=== PATIENT | female | born 1980 | race Caucasian/White ===

== ENCOUNTER 2018-12-17 02:32 | Emergency (ER) | payer OTHER ==
[~2018-12-17] VITALS: Ht 167.6 cm; Wt 72.6 kg
[~2018-12-17 02:32] MED LIST: MACROBID 100 M100 M1 PO; PRENATAL
[2018-12-17 03:06] LABS: ABSOLUTE BASOPHILS 0.1 thou/uL (0.0-0.2); ABSOLUTE EOSINOPHILS 0.1 thou/uL (0.0-0.7); ABSOLUTE LYMPHOCYTES 2.8 thou/uL (0.8-5.3); ABSOLUTE MONOCYTES 0.6 thou/uL (0.0-1.2); ABSOLUTE NEUTROPHILS 3.6 thou/uL (1.6-8.1); BASOPHILS 0.8 %; EOSINOPHILS 1.7 %; HEMOGLOBIN 13.7 gm/dL (12.0-15.0); LYMPHOCYTES 39.2 %; MCH 30.8 pg (26.0-34.0); MCHC 34.2 g/dL (28.0-37.0); MCV 90.1 fL (80.0-100.0); MONOCYTES 7.7 %; MPV 7.8 fl. (7.2-11.1); NUCLEATED RBCS 0 /100WBC; PLATELET COUNT* 261 thou/uL (150-400); POLYS 50.6 %; RBC 4.44 mil/uL (4.20-5.00); RDW-CV 13.2 % (10.5-14.5); WBC 7.2 thou/uL (4.0-11.0)
[2018-12-17 03:11] LABS: CALCIUM 8.7 mg/dL (8.5-10.1); CREATININE 0.7 mg/dL (0.6-1.3)
[2018-12-17 03:18] LABS: POTASSIUM 2.8 mmol/L (3.5-5.1)
[2018-12-17 03:21] LABS: ALBUMIN 4.2 g/dL (3.4-5.0); TOTAL BILIRUBIN 0.4 mg/dL (<0.1-1.0); TOTAL PROTEIN 7.7 g/dL (6.4-8.2)
[2018-12-17 04:56] VITALS: BP 119/72
== END 2018-12-17 04:57 | disposition home or self-care (01) ==
LOC: M.ERS 02:32
PROVIDERS: Family Medicine
DX: R10.2 Pelvic and perineal pain (principal); R10.30 Lower abdominal pain, unspecified